=== PATIENT | male | born 1980 | race African-American/Black ===

== ENCOUNTER 2017-11-18 01:58 | Inpatient (IN) | payer MEDICAID, OTHER ==
[~2017-11-18] VITALS: Ht 170.2 cm; Wt 82.6 kg
[2017-11-18] VITALS (7 sets, daily range): BP systolic 106–151; BP diastolic 62–95
[2017-11-18 03:08] LABS: BASOPHILS % (AUTO) 1.8 % (0.0-2.0); EOSINOPHILS % (AUTO) 1.5 % (0.0-3.0); HEMATOCRIT 37.8 % (42.0-52.0); HEMOGLOBIN 12.6 G/DL (14.2-18.0); LYMPHOCYTES % (AUTO) 37.1 % (20.0-45.0); MEAN CORPUSCULAR VOLUME 87 FL (80-99); MONOCYTES % (AUTO) 10.1 % (1.0-10.0); NEUTROPHILS % (AUTO) 49.4 % (45.0-75.0); PLATELET COUNT 332 K/UL (150-450); RED BLOOD COUNT 4.36 M/UL (4.70-6.10); RED CELL DISTRIBUTION WIDTH 11.1 % (11.6-14.8); WHITE BLOOD COUNT 8.4 K/UL (4.8-10.8)
[2017-11-18 03:29] LABS: ANION GAP 7 mmol/L (5-15); BLOOD UREA NITROGEN 12 mg/dL (7-18); CALCIUM 9.5 MG/DL (8.5-10.1); CARBON DIOXIDE 30 MMOL/L (21-32); CHLORIDE 106 MMOL/L (98-107); CREATININE 0.8 MG/DL (0.55-1.30); POTASSIUM 3.5 MMOL/L (3.5-5.1); SODIUM 143 MMOL/L (136-145)
[2017-11-18 03:33] LABS: ALANINE AMINOTRANSFERASE 17 U/L (12-78); ALBUMIN 3.1 G/DL (3.4-5.0); ALBUMIN/GLOBULIN RATIO 0.7 (1.0-2.7); ALKALINE PHOSPHATASE 76 U/L (46-116); ASPARTATE AMINO TRANSFERASE 15 U/L (15-37); BILIRUBIN,TOTAL 0.3 MG/DL (0.2-1.0)
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
[2017-11-18] MEDS ORDERED: LORazepam 1mg tab ORAL ONE (09:30)
[2017-11-18] MEDS ORDERED: ACETAMINOPHEN325 M1 ORAL (13:32)
[2017-11-18] MEDS ORDERED: AMLODIPINE BESYL5 MG ORAL (13:32)
[2017-11-18] MEDS ORDERED: IBUPROFEN600 MG ORAL (13:32)
[2017-11-18] MEDS ORDERED: VITAMIN D1000 UNI1 ORAL (13:32)
[2017-11-18] MEDS ORDERED: BENZTROPINE ME0.5 MG PO (13:32)
[2017-11-18] MEDS ORDERED: MILK OF MA400 MG/51 ORAL (13:32)
[2017-11-18] MEDS ORDERED: OLANZAPINE5 MG ORAL (13:32)
[2017-11-18] MEDS ORDERED: DULCOLAX10 MG RC (13:32)
[2017-11-18] MEDS ORDERED: DOCUSATE SODIU100 MG ORAL (13:32)
[2017-11-18] MEDS ORDERED: DIVALPROEX SOD250 MG PO (13:32)
[2017-11-18] MEDS: LORazepam 1mg tab ORAL ONE ×2 (16:13→16:15)
[2017-11-18] MEDS ORDERED: LORazepam Inj 2mg/ml 1ml IM ONE (16:30)
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
[2017-11-18] MEDS ORDERED: Milk of Magnesia 30ml Ud ORAL PRN (19:15)
[2017-11-18] MEDS ORDERED: Docusate 100mg cap ORAL PRN (19:15)
[2017-11-18] MEDS: Heparin 5000 units/ml inj SUBQ SCH (20:40)
[2017-11-19 09:00] VITALS: BP 110/62
[2017-11-19] MEDS ORDERED: Vitamin D 1000 IU Tab ORAL SCH (09:00)
[2017-11-19] MEDS ORDERED: Benztropine 1mg tab ORAL ONE (09:00)
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
[2017-11-19] MEDS: Benztropine 1mg tab ORAL SCH ×2 (09:53→18:17)
[2017-11-19] MEDS: Heparin 5000 units/ml inj SUBQ SCH (09:56)
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
[2017-11-19 19:46] VITALS: BP 154/84
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
== END 2017-11-19 20:10 | DRG 758 ==
LOC: EDBD 01:58 → EMR 02:26 → EDBEDREQ 10:32 → 4E 16:12 → EDBEDREQ 16:28
DX: F91.8 Other conduct disorders (principal); F79 Unspecified intellectual disabilities; R45.4 Irritability and anger; I10 Essential (primary) hypertension
CPT/HCPCS: 36415; 80053; 80307; 80329; 85025; 87081; 99285